=== PATIENT | male | born 1985 | race Caucasian/White ===

== ENCOUNTER 2018-04-16 23:22 | Emergency (ER) | payer SELFPAY ==
--- NOTE | 2018-04-17 | EDM.PDOC ---
ED HPI GENERAL MEDICAL PROBLEM - General Chief Complaint: Skin Complaint Stated Complaint: STOMACH Time Seen by Provider: 04/16/18 23:33 - History of Present Illness INITIAL COMMENTS - FREE TEXT/NARRATIVE: HISTORY AND PHYSICAL: History of present illness: Patient 33-year-old male who is remote history of gastric sleeve presents with concern of an area where there was a prior drain that developed some localized discomfort of his anterior abdominal wall in that region after he had an omelette he denies any fever chills nausea vomiting or other complaints Review of systems: As per history of present illness and below otherwise all systems reviewed and negative. Past medical history: As per history of present illness and as reviewed below otherwise noncontributory. Surgical history: As per history of present illness and as reviewed below otherwise noncontributory. Social history: No reported history of drug or alcohol abuse. Family history: As per history of present illness and as reviewed below otherwise noncontributory. Physical exam: HEENT: Atraumatic, normocephalic, pupils reactive, negative for conjunctival pallor or scleral icterus, mucous membranes moist, throat clear, neck supple, nontender, trachea midline. Lungs: Clear to auscultation, breath sounds equal bilaterally, chest nontender. Heart: S1S2, regular, negative for clicks, rubs, or JVD. Abdomen: Soft, nondistended, no localized tenderness noted prior scars related to abdominal surgery and drain noted without evidence of hernia or other significant finding. Negative for masses or hepatosplenomegaly. Negative for costovertebral tenderness. Pelvis: Stable nontender. Genitourinary: Deferred. Rectal: Deferred. Extremities: Atraumatic, negative for cords or calf pain. Neurovascular unremarkable. Neuro: Awake, alert, oriented. Cranial nerves II through XII unremarkable. Cerebellum unremarkable. Motor and sensory unremarkable throughout. Exam nonfocal. Diagnostics: CBC CMP Therapeutics: None Impression: #1 medical screening exam #2 abdominal pain Definitive disposition and diagnosis as appropriate pending reevaluation and review of above. - Related Data Allergies Allergy/AdvReac Type Severity Reaction Status Date / Time No Known Allergies Allergy Verified 04/16/18 23:37 Home Meds: Home Meds . [No Known Home Meds] 04/16/18 [History] Past Medical History Genitourinary History: Reports: Acute Renal Failure - Infectious Disease History Infectious Disease History: Reports: Chicken Pox - Past Surgical History GI Surgical History: Reports: Bariatric Procedure Dermatological Surgical History: Reports: Other (See Below) Social & Family History - Tobacco Use Smoking Status *Q: Former Smoker Used Tobacco, but Quit: Yes Month/Year Tobacco Last Used: 02/2018 - Caffeine Use Caffeine Use: Reports: None - Recreational Drug Use Recreational Drug Use: Yes Drug Use in Last 12 Months: Yes Recreational Drug Type: Reports: Marijuana/Hashish Recreational Drug Use Frequency: Not Used In Over 1 Month ED ROS GENERAL - Review of Systems Review Of Systems: ROS reveals no pertinent complaints other than HPI. ED EXAM, SKIN/RASH Exam: See Below (See dictation) Course - Vital Signs Last Recorded V/S: Last Vital Signs Temp 36.4 C 04/16/18 23:34 Pulse 89 04/16/18 23:34 Resp 12 04/16/18 23:34 BP 128/60 04/16/18 23:34 Pulse Ox 97 04/16/18 23:34 - Orders/Labs/Meds Orders: Active Orders 24 hr Category Date Time Status CBC WITH AUTO DIFF [HEME] Stat Lab 04/16/18 23:57 Ordered CMP [COMPREHENSIVE METABOLIC PN,CMP] [CHEM] Stat Lab 04/16/18 23:57 Ordered Departure - Departure Time of Disposition: 23:59 Disposition: Home, Self-Care 01 Condition: Good Clinical Impression: Encounter for medical screening examination, Abdominal pain - Discharge Information *PRESCRIPTION DRUG MONITORING PROGRAM REVIEWED*: Not Applicable *COPY OF PRESCRIPTION DRUG MONITORING REPORT IN PATIENT ARVIN: Not Applicable Referrals: PCP,None [Primary Care Provider] - Additional Instructions: The following information is given to patients seen in the emergency department who are being discharged to home. This information is to outline your options for follow-up care. We provide all patients seen in our emergency department with a follow-up referral. The need for follow-up, as well as the timing and circumstances, are variable depending upon the specifics of your emergency department visit. If you don't have a primary care physician on staff, we will provide you with a referral. We always advise you to contact your personal physician following an emergency department visit to inform them of the circumstance of the visit and for follow-up with them and/or the need for any referrals to a consulting specialist. The emergency department will also refer you to a specialist when appropriate. This referral assures that you have the opportunity for followup care with a specialist. All of these measure are taken in an effort to provide you with optimal care, which includes your followup. Under all circumstances we always encourage you to contact your private physician who remains a resource for coordinating your care. When calling for followup care, please make the office aware that this follow-up is from your recent emergency room visit. If for any reason you are refused follow-up, please contact the [facility] emergency department at and asked to speak to the emergency department charge nurse. [facility] - General Surgery Professional Building [address] [place] [address], [address] [place] [address] Clear liquids as directed follow-up Gen. surgery call to schedule routine appointment above return as needed as discussed[] - My Orders Last 24 Hours: My Active Orders 04/16/18 23:57 CBC WITH AUTO DIFF [HEME] Stat CMP [COMPREHENSIVE METABOLIC PN,CMP] [CHEM] Stat - Assessment/Plan Last 24 Hours: My Active Orders 04/16/18 23:57 CBC WITH AUTO DIFF [HEME] Stat CMP [COMPREHENSIVE METABOLIC PN,CMP] [CHEM] Stat
[2018-04-17] MEDS ORDERED: Acetaminophen 500 MG Tab PO ONE (00:19)
[2018-04-17 00:40] LABS: CHLORIDE,CL 103 mmol/L (98-107); SODIUM,NA 137 mmol/L (136-148)
== END 2018-04-17 00:51 | disposition home or self-care (01) ==
LOC: MW.ED 23:22
DX: R10.9 Unspecified abdominal pain (principal); Z87.891 Personal history of nicotine dependence; Z98.84 Bariatric surgery status
CPT/HCPCS: 36415; 80053; 85025; 99283; A9270

== ENCOUNTER 2018-09-01 23:23 | Emergency (ER) | payer OTHER ==
[2018-09-01] MEDS ORDERED: Sodium Chloride 0.9% 1,000 ML IV ONE (23:41)
[2018-09-01] MEDS ORDERED: Ketorolac 30 MG/ML SDV IVPUSH ONE (23:41)
[2018-09-02 00:26] LABS: CHLORIDE,CL 101 mmol/L (98-107); SODIUM,NA 138 mmol/L (136-148)
--- NOTE | 2018-09-02 01:30 | EDM.PDOC ---
ED HPI GENERAL MEDICAL PROBLEM - General Chief Complaint: Abdominal Pain Stated Complaint: ABDOMINAL PAIN Time Seen by Provider: 09/02/18 01:27 Source of Information: Reports: Patient - History of Present Illness INITIAL COMMENTS - FREE TEXT/NARRATIVE: HISTORY AND PHYSICAL: History of present illness: Patient presents with a history of abdominal pain Is followed by Dr. Jason Day was performed CT of the last week, is also performed a surgical drainage of an abscess to patients abdomen superficial abscess, Dr. Day and ordered an ultrasound for the patient apparently, ever patient presents with right-sided abdominal pain radiating to the groin today is unchanged over the last 4 months He has a history of bariatric surgery No fever nausea vomiting chills sweats no chest pain shortness breath headache dizziness palpitation no bowel or urine symptoms Review of systems: As per history of present illness and below otherwise all systems reviewed and negative. Past medical history: As per history of present illness and as reviewed below otherwise noncontributory. Surgical history: As per history of present illness and as reviewed below otherwise noncontributory. Social history: No reported history of drug or alcohol abuse. Family history: As per history of present illness and as reviewed below otherwise noncontributory. Physical exam: HEENT: Atraumatic, normocephalic, pupils reactive, negative for conjunctival pallor or scleral icterus, mucous membranes moist, throat clear, neck supple, nontender, trachea midline. Lungs: Clear to auscultation, breath sounds equal bilaterally, chest nontender. Heart: S1S2, regular, negative for clicks, rubs, or JVD. Abdomen: Soft, nondistended, nontender. Negative for masses or hepatosplenomegaly. Negative for costovertebral tenderness. Midline incision noted consistent with the drainage of abscess scars noted consistent with bariatric procedure Pelvis: Stable nontender. Genitourinary: Deferred. Rectal: Deferred. Extremities: Atraumatic, negative for cords or calf pain. Neurovascular unremarkable. Neuro: Awake, alert, oriented. Cranial nerves II through XII unremarkable. Cerebellum unremarkable. Motor and sensory unremarkable throughout. Exam nonfocal. Diagnostics: []CBC CMP troponin lipase CT abdomen pelvis on file within last 5 days, patient refuses repeat CT Ultrasound right upper quadrant performed Therapeutics: []Normal saline Toradol 30 mg IV Impression: Cholelithiasis Chronic history of baseline Definitive disposition and diagnosis as appropriate pending reevaluation and review of above. Abdominal Pain Score (Numeric/FACES): 9 - Related Data Allergies Allergy/AdvReac Type Severity Reaction Status Date / Time No Known Allergies Allergy Verified 09/01/18 23:34 Home Meds: Home Meds . 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 Psychiatric History: Reports: Anxiety Endocrine/Metabolic History: Reports: Obesity/BMI 30+ Hematologic History: Reports: None Immunologic History: Reports: None Oncologic (Cancer) History: Reports: None Dermatologic History: Reports: None - Infectious Disease History Infectious Disease History: Reports: Chicken Pox - Past Surgical History Head Surgeries/Procedures: Reports: None GI Surgical History: Reports: Bariatric Procedure, Colonoscopy, Other (See Below ) Other GI Surgeries/Procedures: hx of Laparotomy for abscess after bariatic surgery Dermatological Surgical History: Reports: Other (See Below) Social & Family History - Family History Family Medical History: Noncontributory - Tobacco Use Smoking Status *Q: Never Smoker - Caffeine Use Caffeine Use: Reports: None - Recreational Drug Use Recreational Drug Use: Yes Drug Use in Last 12 Months: Yes Recreational Drug Type: Reports: Marijuana/Hashish ED ROS GENERAL - Review of Systems Review Of Systems: See Below ED EXAM, GENERAL - Physical Exam Exam: See Below Course - Vital Signs Last Recorded V/S: Last Vital Signs Temp 97.7 F 09/01/18 23:31 Pulse 82 09/01/18 23:31 Resp 18 09/01/18 23:31 BP 139/86 09/01/18 23:31 Pulse Ox 97 09/01/18 23:31 - Orders/Labs/Meds Orders: Active Orders 24 hr Category Date Time Status Abdomen Ltd [US] Stat Exams 09/02/18 Taken Ciprofloxacin [Ciprofloxacin HCl] Med 09/02/18 01:51 Once 500 mg PO ONETIME ONE Morphine Med 09/02/18 01:51 Once 2 mg IVPUSH ONETIME ONE Labs: Laboratory Tests 09/01/18 09/01/18 09/01/18 Range/Units 23:45 23:45 23:45 WBC 7.12 (4.0-11.0) K/uL RBC 4.78 (4.50-5.90) M/uL Hgb 15.1 (13.0-17.0) g/dL Hct 44.8 (38.0-50.0) % MCV 93.7 (80.0-98.0) fL MCH 31.6 (27.0-32.0) pg MCHC 33.7 (31.0-37.0) g/dL RDW Std Deviation 45.1 (28.0-62.0) fl RDW Coeff of Carlota 13 (11.0-15.0) % Plt Count 166 (150-400) K/uL MPV 10.00 (7.40-12.00) fL Neut % (Auto) 60.5 (48.0-80.0) % Lymph % (Auto) 24.0 (16.0-40.0) % Gonzales % (Auto) 12.5 (0.0-15.0) % Eos % (Auto) 2.4 (0.0-7.0) % Baso % (Auto) 0.6 (0.0-1.5) % Neut # (Auto) 4.3 (1.4-5.7) K/uL Lymph # (Auto) 1.7 (0.6-2.4) K/uL Gonzales # (Auto) 0.9 H (0.0-0.8) K/uL Eos # (Auto) 0.2 (0.0-0.7) K/uL Baso # (Auto) 0.0 (0.0-0.1) K/uL Nucleated RBC % 0.0 /100WBC Nucleated RBCs # 0 K/uL Sodium 138 (136-148) mmol/L Potassium 4.3 (3.5-5.1) mmol/L Chloride 101 (98-107) mmol/L Carbon Dioxide 28.2 (21.0-32.0) mmol/L BUN 25 H (7.0-18.0) mg/dL Creatinine 1.0 (0.8-1.3) mg/dL Est Cr Clr Drug Dosing 103.10 mL/min Estimated GFR (MDRD) > 60.0 ml/min Glucose 100 (74-106) mg/dL Calcium 9.1 (8.5-10.1) mg/dL Total Bilirubin 1.6 H (0.2-1.0) mg/dL AST 30 (15-37) IU/L ALT 27 (14-63) IU/L Alkaline Phosphatase 87 (46-116) U/L Troponin I < 0.050 (0.000-0.056) ng/mL Total Protein 7.8 (6.4-8.2) g/dL Albumin 3.9 (3.4-5.0) g/dL Globulin 3.9 (2.6-4.0) g/dL Albumin/Globulin Ratio 1.0 (0.9-1.6) Lipase 120 (73-393) U/L Urine Color YELLOW Urine Appearance CLEAR Urine pH 6.0 (5.0-8.0) Ur Specific [place] >= 1.030 (1.001-1.035) Urine Protein NEGATIVE (NEGATIVE) mg/dL Urine Glucose (UA) NEGATIVE (NEGATIVE) mg/dL Urine Ketones TRACE H (NEGATIVE) mg/dL Urine Occult Blood NEGATIVE (NEGATIVE) Urine Nitrite NEGATIVE (NEGATIVE) Urine Bilirubin SMALL H (NEGATIVE) Urine Ictotest NEGATIVE Urine Urobilinogen 0.2 (<2.0) EU/dL Ur Leukocyte Esterase NEGATIVE (NEGATIVE) Meds: Medications Discontinued Medications Generic Name Dose Route Start Last Admin Trade Name Freq PRN Reason Stop Dose Admin Sodium Chloride 1,000 mls @ 999 mls/hr 09/01/18 23:41 09/01/18 23:49 Normal Saline IV 09/02/18 00:41 999 mls/hr STAT ONE Administration Ketorolac Tromethamine 30 mg 09/01/18 23:41 09/01/18 23:49 Toradol IVPUSH 09/01/18 23:42 30 mg ONETIME ONE Administration Departure - Departure Time of Disposition: 01:52 Disposition: Home, Self-Care 01 Condition: Good Clinical Impression: Cholelithiasis - Discharge Information Referrals: PCP,None [Primary Care Provider] - Forms: ED Department Discharge Additional Instructions: Medication as prescribed Return if symptoms persist or worsen Follow-up with general surgery next week [facility][Note 3] - General Surgery Professional Building [address] [place] [address], [address] [place] [address] The following information is given to patients seen in the emergency department who are being discharged to home. This information is to outline your options for follow-up care. We provide all patients seen in our emergency department with a follow-up referral. The need for follow-up, as well as the timing and circumstances, are variable depending upon the specifics of your emergency department visit. If you don't have a primary care physician on staff, we will provide you with a referral. We always advise you to contact your personal physician following an emergency department visit to inform them of the circumstance of the visit and for follow-up with them and/or the need for any referrals to a consulting specialist. The emergency department will also refer you to a specialist when appropriate. This referral assures that you have the opportunity for follow-up care with a specialist. All of these measure are taken in an effort to provide you with optimal care, which includes your follow-up. Under all circumstances we always encourage you to contact your private physician who remains a resource for coordinating your care. When calling for follow-up care, please make the office aware that this follow-up is from your recent emergency room visit. If for any reason you are refused follow-up, please contact the [facility] emergency department at and asked to speak to the emergency department charge nurse. - My Orders Last 24 Hours: My Active Orders 09/02/18 Abdomen Ltd [US] Stat 09/02/18 01:51 Ciprofloxacin [Ciprofloxacin HCl] 500 mg PO ONETIME ONE Morphine 2 mg IVPUSH ONETIME ONE - Assessment/Plan Last 24 Hours: My Active Orders 09/02/18 Abdomen Ltd [US] Stat 09/02/18 01:51 Ciprofloxacin [Ciprofloxacin HCl] 500 mg PO ONETIME ONE Morphine 2 mg IVPUSH ONETIME ONE
[2018-09-02] MEDS ORDERED: Morphine 2 MG/ML Syringe IVPUSH ONE (01:51)
[2018-09-02] MEDS ORDERED: Ciprofloxacin 500 MG Tab PO ONE (01:51)
--- NOTE | 2018-09-03 17:31 | US ---
EXAM DATE: 09/01/18 PATIENT'S AGE: 33 Patient: SERGEI BURK Facility: [facility], [place], [place] : 1985 Study: US Abdomen [id number]/[id number] 1:12:25 AM Ordering Physician: SYED Final Report: INDICATION: Right abdominal pain. COMPARISON: CT of the abdomen from 08/02/2018 TECHNIQUE: Ultrasound examination of the right upper quadrant was performed. FINDINGS: There is mild cholelithiasis with a few calculi in the dependent portion of the gallbladder, similar in appearance to the previous CT. There is no sign of gallbladder wall thickening or pericholecystic fluid to indicate acute cholecystitis. However, a sonographic Amaral sign is present. The common bile duct is normal in caliber at 5 mm. The pancreas is obscured by bowel gas. The liver shows no sign of mass or contour abnormality, and there is no sign of ascites. There is mildly increased hepatic echogenicity consistent with fatty infiltration. The right kidney is unremarkable. IMPRESSION: CHOLELITHIASIS WITH A POSITIVE SONOGRAPHIC AMARAL SIGN. NO GALLBLADDER WALL THICKENING OR PERICHOLECYSTIC FLUID. COMMON BILE DUCT NORMAL IN CALIBER AT 5 MILLIMETERS. Dictated by Quincy Vivas MD @ Sep 02 2018 1:28AM (Electronic Signature) Report Signed by Proxy. YUDY
== END 2018-09-02 02:09 | disposition home or self-care (01) ==
LOC: MW.ED 23:23
DX: K80.20 Calculus of gallbladder without cholecystitis without obstruction (principal)
CPT/HCPCS: 36415; 76705; 80053; 81003; 83690; 84484; 85025; 96361; 96374; 96375; 99284; A9270; J1885; J2270; J7040